=== PATIENT | male | born 1955 | race Caucasian/White ===

== ENCOUNTER 2016-09-30 19:05 | Emergency (ER) | payer MEDICARE, BC, MEDICAID ==
[2016-09-30 20:36] LABS: CHLORIDE,CL 101 mmol/L (98-107); SODIUM,NA 140 mmol/L (136-145)
[2016-09-30 21:17] VITALS: BP 123/73
--- NOTE | 2016-09-30 21:49 | EDM.PDOC ---
ED HPI GENERAL MEDICAL PROBLEM - General Chief Complaint: General Stated Complaint: abdominal/rib pain Time Seen by Provider: 09/30/16 19:30 Source of Information: Reports: Patient History Limitations: Reports: No Limitations - History of Present Illness Onset: Today Duration: Hour(s):, Getting Worse Location: Reports: Chest Quality: Reports: Sharp Severity: Moderate Improves with: Reports: None Worsens with: Reports: None Context: Reports: Activity, Lifting Associated Symptoms: Reports: No Other Symptoms Bilateral Thoracic Pain Score (Numeric/FACES): 10 - Related Data Allergies Allergy/AdvReac Type Severity Reaction Status Date / Time No Known Allergies Allergy Verified 09/30/16 19:36 Home Meds: Home Meds Amitriptyline [Elavil] 50 mg PO BEDTIME 01/07/15 [History] Divalproex Sodium 1,000 mg PO BEDTIME 01/07/15 [History] OLANZapine 20 mg PO BEDTIME 01/07/15 [History] Simvastatin 20 mg PO BEDTIME 01/07/15 [History] Past Medical History Cardiovascular History: Reports: High Cholesterol Respiratory History: Reports: None Gastrointestinal History: Reports: Chronic Constipation Genitourinary History: Reports: None, Renal Calculus Musculoskeletal History: Reports: Fracture Neurological History: Reports: None Psychiatric History: Reports: Anxiety, Depression Endocrine/Metabolic History: Reports: None Hematologic History: Reports: None Immunologic History: Reports: None Oncologic (Cancer) History: Reports: None Dermatologic History: Reports: None - Past Surgical History HEENT Surgical History: Reports: Tonsillectomy Respiratory Surgical History: Reports: None GI Surgical History: Reports: None Endocrine Surgical History: Reports: None Neurological Surgical History: Reports: None Musculoskeletal Surgical History: Reports: Other (See Below) Other Musculoskeletal Surgeries/Procedures:: surgical repair right ankle Dermatological Surgical History: Reports: None Social & Family History - Tobacco Use Smoking Status *Q: Current Every Day Smoker Years of Tobacco use: 40 Packs/Tins Daily: 0.5 Second Hand Smoke Exposure: No - Caffeine Use Caffeine Use: Reports: Soda - Alcohol Use Days Per Week of Alcohol Use: 0 (No previous DWIs, problems with alcohol abuse, etc.) - Recreational Drug Use Recreational Drug Use: No Drug Use in Last 12 Months: No - Living Situation & Occupation Living situation: Reports: Single, with Family Occupation: Disabled ED ROS GENERAL - Review of Systems Review Of Systems: See Below Constitutional: Reports: Fever HEENT: Reports: No Symptoms Respiratory: Reports: No Symptoms Cardiovascular: Reports: No Symptoms Endocrine: Reports: No Symptoms GI/Abdominal: Reports: No Symptoms : Reports: No Symptoms Musculoskeletal: Reports: No Symptoms Neurological: Reports: No Symptoms Psychiatric: Reports: Anxiety, Depression Hematologic/Lymphatic: Reports: No Symptoms Immunologic: Reports: No Symptoms ED EXAM, GENERAL - Physical Exam Exam: See Below Exam Limited By: No Limitations General Appearance: Alert, WD/WN, No Apparent Distress Ears: Normal External Exam, Normal Canal, Hearing Grossly Normal, Normal TMs Nose: Normal Inspection, Normal Mucosa, No Blood Throat/Mouth: Normal Inspection, Normal Lips, Normal Teeth, Normal Gums, Normal Oropharynx, Normal Voice, No Airway Compromise Head: Atraumatic, Normocephalic Neck: Normal Inspection, Supple, Non-Tender, Full Range of Motion Respiratory/Chest: No Respiratory Distress, Lungs Clear, Normal Breath Sounds, No Accessory Muscle Use, Chest Non-Tender, Other (Pain to palpation right and left lower chest anterior) Cardiovascular: Normal Peripheral Pulses, Regular Rate, Rhythm, No Edema, No Gallop, No JVD, No Murmur, No Rub GI/Abdominal: Normal Bowel Sounds, Soft, Non-Tender, No Organomegaly, No Distention, No Abnormal Bruit, No Mass (Male) Exam: Deferred Rectal (Males) Exam: Deferred Back Exam: Normal Inspection Extremities: Normal Inspection, Normal Range of Motion, Non-Tender, Normal Capillary Refill, No Pedal Edema Neurological: Alert, Oriented, CN II-XII Intact, Normal Cognition, Normal Gait, Normal Reflexes, No Motor/Sensory Deficits Course - Vital Signs Last Recorded V/S: Last Vital Signs Temp 100.3 F 09/30/16 21:04 Pulse 89 09/30/16 21:04 Resp 20 09/30/16 21:04 BP 123/73 09/30/16 21:04 Pulse Ox 95 09/30/16 21:04 - Orders/Labs/Meds Orders: Active Orders 24 hr Category Date Time Status CXR [Chest 2V] [CR] Stat Exams 09/30/16 20:00 Taken Labs: Laboratory Tests 09/30/16 09/30/16 Range/Units 20:20 20:20 WBC 10.5 H (4.0-10.2) K/uL RBC 4.92 (4.33-5.41) M/uL Hgb 16.0 D (13.1-16.8) g/dL Hct 46.8 (39.0-49.0) % MCV 95.1 (84.0-98.0) fL MCH 32.5 (28.2-33.3) pg MCHC 34.2 (31.7-36.0) g/dL RDW 12.0 (11.2-14.1) % Plt Count 166 (150-350) K/uL Neut % (Auto) 56.8 (45.0-80.0) % Lymph % (Auto) 27.7 (10.0-50.0) % Mcmullen % (Auto) 13.9 (2.0-14.0) % Eos % (Auto) 1.3 (0.0-5.0) % Baso % (Auto) 0.3 (0.0-2.0) % Neut # (Auto) 5.94 (1.40-7.00) K/uL Lymph # (Auto) 2.89 (0.50-3.50) K/uL Mcmullen # (Auto) 1.45 H (0.00-1.00) K/uL Eos # (Auto) 0.14 (0.00-0.50) K/uL Baso # (Auto) 0.03 (0.00-0.20) K/uL Sodium 140 (136-145) mmol/L Potassium 4.5 (3.5-5.1) mmol/L Chloride 101 (98-107) mmol/L Carbon Dioxide 30.3 (21.0-32.0) mmol/L BUN 9 (7-18) mg/dL Creatinine 0.85 (0.51-1.17) mg/dL Est Cr Clr Drug Dosing TNP Estimated GFR (MDRD) > 60 mL/min Glucose 103 (74-106) mg/dL Calcium 8.9 (8.5-10.1) mg/dL Departure - Departure Time of Disposition: 21:49 Disposition: Refer to Observation Clinical Impression: Costochondritis - Discharge Information Forms: ED Department Discharge Care Plan Goals: Patient to take Tylenol 2 tablets every 6 hours for pain also he is to do deep breathing and coughing exercises 10 times per hour while awake - My Orders Last 24 Hours: My Active Orders 09/30/16 20:00 CXR [Chest 2V] [CR] Stat - Assessment/Plan Last 24 Hours: My Active Orders 09/30/16 20:00 CXR [Chest 2V] [CR] Stat
== END 2016-09-30 22:15 | disposition home or self-care (01) ==
LOC: LL.ED 19:05
DX: M94.0 Chondrocostal junction syndrome [Tietze] (principal); E78.00 Pure hypercholesterolemia, unspecified; F17.210 Nicotine dependence, cigarettes, uncomplicated; F32.9 Major depressive disorder, single episode, unspecified
CPT/HCPCS: 36415; 71020; 80048; 85025; 99282; 99284

== ENCOUNTER 2017-03-26 17:48 | Emergency (ER) | payer MEDICARE, BC, MEDICAID ==
[2017-03-26 18:36] VITALS: BP 132/68
[2017-03-26 18:52] LABS: CHLORIDE,CL 105 mmol/L (98-107); SODIUM,NA 140 mmol/L (136-145)
--- NOTE | 2017-03-26 20:11 | EDM.PDOC ---
ED HPI GENERAL MEDICAL PROBLEM - General Chief Complaint: Gastrointestinal Problem Stated Complaint: Diarrhea Time Seen by Provider: 03/26/17 18:10 Source of Information: Reports: Patient History Limitations: Reports: Altered Mental Status - History of Present Illness INITIAL COMMENTS - FREE TEXT/NARRATIVE: Patient seen with 5 days history of diarrhea states that 3 days ago he took 5 heaping tablespoons of milk of magnesia and now can control himself he's been stooling his underwear continuous he's taken Imodium with no help patient states that he took the milk of magnesia to clean himself out Onset: Gradual Duration: Day(s):, Getting Worse Location: Reports: Abdomen Quality: Reports: Ache Severity: Moderate Improves with: Reports: None Worsens with: Reports: Medication (Milk of magnesia) Context: Reports: Activity Associated Symptoms: Reports: Weakness Treatments HAND MOLD MAKER: Reports: Other (see below) Other Treatments HAND MOLD MAKER: immodium - Related Data Allergies Allergy/AdvReac Type Severity Reaction Status Date / Time No Known Allergies Allergy Verified 09/30/16 19:36 Home Meds: Home Meds Amitriptyline [Elavil] 50 mg PO BEDTIME 01/07/15 [History] Divalproex Sodium 1,000 mg PO BEDTIME 01/07/15 [History] OLANZapine 20 mg PO BEDTIME 01/07/15 [History] Simvastatin 20 mg PO BEDTIME 01/07/15 [History] Past Medical History Cardiovascular History: Reports: High Cholesterol Respiratory History: Reports: None Gastrointestinal History: Reports: Chronic Constipation Genitourinary History: Reports: None, Renal Calculus Musculoskeletal History: Reports: Fracture Neurological History: Reports: None Psychiatric History: Reports: Anxiety, Depression Endocrine/Metabolic History: Reports: None Hematologic History: Reports: None Immunologic History: Reports: None Oncologic (Cancer) History: Reports: None Dermatologic History: Reports: None - Past Surgical History HEENT Surgical History: Reports: Tonsillectomy Respiratory Surgical History: Reports: None GI Surgical History: Reports: None Endocrine Surgical History: Reports: None Neurological Surgical History: Reports: None Musculoskeletal Surgical History: Reports: Other (See Below) Other Musculoskeletal Surgeries/Procedures:: surgical repair right ankle Dermatological Surgical History: Reports: None Social & Family History - Tobacco Use Smoking Status *Q: Current Every Day Smoker Years of Tobacco use: 40 Packs/Tins Daily: 0.5 Second Hand Smoke Exposure: No - Caffeine Use Caffeine Use: Reports: Soda - Alcohol Use Days Per Week of Alcohol Use: 0 - Recreational Drug Use Recreational Drug Use: No Drug Use in Last 12 Months: No - Living Situation & Occupation Living situation: Reports: Single, with Family Occupation: Disabled ED ROS GENERAL - Review of Systems Review Of Systems: See Below Constitutional: Reports: Weakness, Fatigue HEENT: Reports: No Symptoms Respiratory: Reports: No Symptoms Cardiovascular: Reports: No Symptoms Endocrine: Reports: No Symptoms GI/Abdominal: Reports: Diarrhea, Stool Incontinence : Reports: No Symptoms Musculoskeletal: Reports: No Symptoms Skin: Reports: No Symptoms ED EXAM, GI/ABD - Physical Exam Exam: See Below Exam Limited By: Altered Mental Status General Appearance: Alert, WD/WN, Anxious, Moderate Distress Eyes: Bilateral: Normal Appearance, EOMI Ears: Normal External Exam, Normal Canal, Hearing Grossly Normal, Normal TMs Nose: Normal Inspection, Normal Mucosa, No Blood Throat/Mouth: Normal Inspection, Normal Lips, Normal Teeth, Normal Gums, Normal Oropharynx, Normal Voice, No Airway Compromise Head: Atraumatic, Normocephalic Neck: Normal Inspection, Supple, Non-Tender, Full Range of Motion Respiratory/Chest: Decreased Breath Sounds Cardiovascular: Normal Peripheral Pulses, Regular Rate, Rhythm, No Edema, No Gallop, No JVD, No Murmur, No Rub GI/Abdominal Exam: Non-Tender, No Distention, Abnormal Bowel Sounds (Male) Exam: No Hernia, Normal Inspection, Normal Prostate, Circumcised Rectal (Males) Exam: Normal Exam, Normal Rectal Tone Back Exam: Normal Inspection, Full Range of Motion, NT Extremities: Normal Inspection, Normal Range of Motion, Non-Tender, Normal Capillary Refill, No Pedal Edema Neurological: Alert, Oriented, CN II-XII Intact, Normal Cognition, Normal Gait, Normal Reflexes, No Motor/Sensory Deficits Psychiatric: Anxious, Depressed Mood, Flat Affect Skin Exam: Warm, Dry, Intact, Normal Color, No Rash Course - Vital Signs Last Recorded V/S: Last Vital Signs Temp 99 F 03/26/17 17:50 Pulse 98 03/26/17 17:50 Resp 18 03/26/17 17:50 BP 132/68 03/26/17 17:50 Pulse Ox 98 03/26/17 17:50 - Orders/Labs/Meds Orders: Active Orders 24 hr Category Date Time Status C DIFFICILE TOXIN BY PCR [MREF] Stat Lab 03/26/17 18:08 Uncollected FECAL LACTOFERRIN [MREF] Stat Lab 03/26/17 18:09 Uncollected STOOL CULTURE [MREF] Stat Lab 03/26/17 18:08 Uncollected STOOL CULTURE/SHIGA TOXIN [MREF] Stat Lab 03/26/17 18:08 Uncollected Labs: Laboratory Tests 03/26/17 03/26/17 Range/Units 18:30 18:30 WBC 8.8 (4.0-10.2) K/uL RBC 4.13 L (4.33-5.41) M/uL Hgb 13.4 D (13.1-16.8) g/dL Hct 39.4 (39.0-49.0) % MCV 95.4 (84.0-98.0) fL MCH 32.4 (28.2-33.3) pg MCHC 34.0 (31.7-36.0) g/dL RDW 12.1 (11.2-14.1) % Plt Count 228 D (150-350) K/uL Neut % (Auto) 61.5 (45.0-80.0) % Lymph % (Auto) 24.2 (10.0-50.0) % [place]kin % (Auto) 13.4 (2.0-14.0) % Eos % (Auto) 0.7 (0.0-5.0) % Baso % (Auto) 0.2 (0.0-2.0) % Neut # (Auto) 5.43 (1.40-7.00) K/uL Lymph # (Auto) 2.14 (0.50-3.50) K/uL [place]kin # (Auto) 1.18 H (0.00-1.00) K/uL Eos # (Auto) 0.06 (0.00-0.50) K/uL Baso # (Auto) 0.02 (0.00-0.20) K/uL Sodium 140 (136-145) mmol/L Potassium 3.7 (3.5-5.1) mmol/L Chloride 105 (98-107) mmol/L Carbon Dioxide 28.5 (21.0-32.0) mmol/L BUN 9 (7-18) mg/dL Creatinine 0.72 (0.51-1.17) mg/dL Est Cr Clr Drug Dosing TNP Estimated GFR (MDRD) > 60 mL/min Glucose 152 H (74-106) mg/dL Calcium 8.9 (8.5-10.1) mg/dL Departure - Departure Time of Disposition: 20:13 Disposition: Home, Self-Care 01 Condition: Fair Clinical Impression: Gastroenteritis, Mixed anxiety depressive disorder, Tobacco abuse counseling, Weakness, Mental disability without special needs - Discharge Information Referrals: Jorje Bassett BIOCHEMICAL DEVELOPMENT ENGINEER [Primary Care Provider] - Care Plan Goals: Patient will be sent home he will obtain stool for cultures C difficile and WBCs we will see him in clinic in 3 days - My Orders Last 24 Hours: My Active Orders 03/26/17 18:08 C DIFFICILE TOXIN BY PCR [MREF] Stat STOOL CULTURE [MREF] Stat STOOL CULTURE/SHIGA TOXIN [MREF] Stat 03/26/17 18:09 FECAL LACTOFERRIN [MREF] Stat - Assessment/Plan Last 24 Hours: My Active Orders 03/26/17 18:08 C DIFFICILE TOXIN BY PCR [MREF] Stat STOOL CULTURE [MREF] Stat STOOL CULTURE/SHIGA TOXIN [MREF] Stat 03/26/17 18:09 FECAL LACTOFERRIN [MREF] Stat
== END 2017-03-26 20:40 | disposition home or self-care (01) ==
LOC: LL.ED 17:48
DX: K52.9 Noninfective gastroenteritis and colitis, unspecified (principal); F41.8 Other specified anxiety disorders; Z71.6 Tobacco abuse counseling; F99 Mental disorder, not otherwise specified; E78.00 Pure hypercholesterolemia, unspecified; F32.9 Major depressive disorder, single episode, unspecified; F17.210 Nicotine dependence, cigarettes, uncomplicated
CPT/HCPCS: 36415; 80048; 83630; 85025; 87045; 87046; 87493; 87899; 99283; 99284

== ENCOUNTER 2019-10-25 15:46 | Emergency (ER) | payer MEDICARE, BC, MEDICAID ==
[2019-10-25 15:50] VITALS: BP 135/73; PULSE 81
--- NOTE | 2019-10-25 15:59 | EDM.PDOC ---
ED HPI GENERAL MEDICAL PROBLEM - General Chief Complaint: General Stated Complaint: "itching all over" Time Seen by Provider: 10/25/19 15:55 Source of Information: Reports: Patient, Old Records ([facility] chart/EMR) History Limitations: Reports: Altered Mental Status (Chronic mental deficits) - History of Present Illness INITIAL COMMENTS - FREE TEXT/NARRATIVE: The patient drove himself to the emergency room via private automobile for evaluation of nonspecific generalized pruritus without history of rash, change in allergen exposure, new recent medications, etc.. He denies any dysphasia, facial swelling, etc. Patient is a somewhat poor historian secondary to his baseline mental deficits. The patient also denies any recent fever, cough, wheezing, dyspnea, etc.. No recent history of abdominal pain, heartburn, nausea, diarrhea, melena, gross hematochezia, or any food intolerance, including fatty foods, etc.. The patient denies any chest pain/pressure, heart flutter, dizziness, orthostasis, orthopnea, diaphoresis, paresthesias, recent decreased exercise tolerance, or any other anginal-type symptoms. He has not taken any medications for his symptoms to this point. The patient denies any pain or discomfort with symptoms starting sometime yesterday evening. Onset: Gradual, Unknown/Unsure Onset Date: 10/24/19 Duration: Constant Location: Reports: Generalized Quality: Reports: Same as Previous Episode Severity: Mild Improves with: Reports: None Worsens with: Reports: None Context: Reports: Other (As above). Denies: Sick Contact Associated Symptoms: Reports: No Other Symptoms. 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 Denies: Allergic Rhinitis, Hard of Hearing Other HEENT History: Patient wears glasses. Cardiovascular History: Reports: Cardiomyopathy, High Cholesterol, Other (See Below). Denies: CAD, Heart Failure, Heart Murmur, Hypertension, [place] Other Cardiovascular History: Diastolic dysfunction by echocardiogram. Evidence of coronary artery calcifications by CT scan with no previous known coronary artery disease or MN. Respiratory History: Reports: Bronchitis, Recurrent, COPD. Denies: PE, Pneumonia, Recurrent, Sleep Apnea Gastrointestinal History: Reports: Chronic Constipation, Fatty Liver, Other (See Below) Other Gastrointestinal History: Fatty liver and splenomegaly secondary to hyperlipidemia. Genitourinary History: Reports: BPH, Renal Calculus. Denies: Retention, Urinary Musculoskeletal History: Reports: Arthritis, Back Pain, Chronic, Fracture, Neck Pain, Chronic, Osteoarthritis, Other (See Below). Denies: Gout Other Musculoskeletal History: Trimalleolar right ankle fracture on 12/04/2014 requiring surgery as below. Neurological History: Reports: Other (See Below). Denies: Concussion, CVA, Headaches, Chronic, Head Trauma, Migraines, Neuropathy, Peripheral, Seizure, TIA Other Neuro History: Chronic mental deficit as below. Psychiatric History: Reports: Anxiety, Depression, Developmental Delay, Schizophrenia, Suicidal Ideation, Other (See Below). Denies: Addiction, Psych Hospitalization(s), Suicide Attempt Other Psychiatric History: Developmental delay/learning disability as above. Chronic insomnia. Previous history of suicidal ideation with no attempts. Endocrine/Metabolic History: Reports: None. Denies: Diabetes, Type I, Diabetes, Type II, Diabetes Mellitus, Type 3c, Hypothyroidism, IDDM Hematologic History: Reports: None Immunologic History: Reports: None Oncologic (Cancer) History: Reports: None Dermatologic History: Reports: None - Infectious Disease History Infectious Disease History: Reports: Chicken Pox, Measles, Mumps, Shingles (Facial herpes zoster.) - Past Surgical History HEENT Surgical History: Reports: Adenoidectomy, Oral Surgery, Tonsillectomy, Other (See Below) Other HEENT Surgeries/Procedures: Tonsillectomy and adenoidectomy at age 8. [place] teeth extraction with additional multiple teeth extractions. Respiratory Surgical History: Reports: None GI Surgical History: Reports: Colonoscopy, Other (See Below). Denies: Appendectomy, Cholecystectomy, EGD, Hernia, Abdominal, Hernia, Inguinal, Hernia Repair/Other, Polypectomy Other GI Surgeries/Procedures: Last colonoscopy on 11/17/2010 with previous evaluation on 06/30/2009. Endocrine Surgical History: Reports: None Neurological Surgical History: Reports: None Musculoskeletal Surgical History: Reports: Arthroscopic Knee, Arthroscopic Procedure, ORIF, Other (See Below) Other Musculoskeletal Surgeries/Procedures:: ORIF of right ankle fracture on 12/06/2004 with subsequent hardware removal on 03/17/2005. Left knee arthroscopic evaluation on 10/19/2008. Dermatological Surgical History: Reports: None - Past Imaging History Past Imaging History: Reports: Barium Enema (07/08/2009), Cardiac Echo (08/18/2014 with ejection fraction of 60-65%.), CAT Scan (CT of the abdomen and pelvis on 11/05/2013. CT of the chest on 12/18/2003.), EEG (09/09/2013.), MRA (MRA of the brain and cervical region on 09/09/2013.), Ultrasound (Abdominal ultrasound on 02/17/2003.), Venous Doppler (Right leg on 03/10/2005 and the left leg on 10/30/2008.) Social & Family History - Tobacco Use Smoking Status *Q: Current Every Day Smoker Tobacco Use Within Last Twelve Months: Pipe Years of Tobacco use: 45 Packs/Tins Daily: 15 Packs/Tins Daily Comment: 15 pipes per day currently with previous cigarette use of 1-1.5 packs/day for about 20 years. Maximum pipe use of 20-30/day. Used Tobacco, but Quit: No Smoking Cessation Information Provided To Patient: Yes Second Hand Smoke Exposure: No Second Hand Smoke Education Provided: No - Caffeine Use Caffeine Use: Reports: Soda - Alcohol Use Alcohol Use History: No Days Per Week of Alcohol Use: 0 Number of Drinks Per Day: 0 Number of Drinks Per Day Comment: No previous DWIs, problems with alcohol abuse, etc. Total Drinks Per Week: 0 Alcohol Use in Last Twelve Months: No - Recreational Drug Use Recreational Drug Use: No - Living Situation & Occupation Living situation: Reports: Single (No children), with Family (Mother) Occupation: Disabled (Secondary to learning disability) ED ROS GENERAL - Review of Systems Review Of Systems: Comprehensive ROS is negative, except as noted in HPI. ED EXAM, GENERAL - Physical Exam Exam: See Below Exam Limited By: No Limitations General Appearance: Alert, WD/WN, No Apparent Distress, Anxious (Mild) Eye Exam: Bilateral Eye: EOMI, Normal Inspection (Patient is wearing glasses. No nystagmus), PERRL Ears: Normal External Exam, Normal Canal, Hearing Grossly Normal, Normal TMs Nose: Normal Inspection, Normal Mucosa, No Blood Throat/Mouth: Normal Lips, Normal Gums, Normal Oropharynx, Normal Voice, No Airway Compromise. No: Normal Teeth (Multiple missing teeth with moderate caries without abscess in the last remaining left upper premolar), Dysphagia, Perioral Cyanosis Head: Atraumatic, Normocephalic, Other (Mild dry skin on the forehead without significant rash). No: Facial Swelling, Facial Tenderness, Sinus Tenderness Neck: Normal Inspection, Supple, Non-Tender, Full Range of Motion. No: Lymphadenopathy (L), Lymphadenopathy (R), Thyromegaly Respiratory/Chest: No Respiratory Distress, Lungs Clear, Normal Breath Sounds, No Accessory Muscle Use, Chest Non-Tender. No: Pleural Rub, Retractions Cardiovascular: Normal Peripheral Pulses, Regular Rate, Rhythm, No Edema, No Gallop, No JVD, No Murmur, No Rub. No: Gallop/S3, Gallop/S4, Friction Rub Peripheral Pulses: 2+: Radial (L), Radial (R) GI/Abdominal: Normal Bowel Sounds, Soft, Non-Tender, No Organomegaly, No Distention, No Abnormal Bruit, No Mass. No: Guarding (Male) Exam: Deferred Rectal (Males) Exam: Deferred Back Exam: Normal Inspection, Full Range of Motion. No: CVA Tenderness (L), CVA Tenderness (R), Muscle Spasm Extremities: Normal Inspection, Normal Range of Motion, Non-Tender, No Pedal Edema, Normal Capillary Refill. No: Joselyn's Sign Neurological: Alert, CN II-XII Intact, Normal Gait, No Motor/Sensory Deficits. No: Normal Cognition (Stable baseline mental deficit from previous evaluations) Psychiatric: Anxious (Mild). No: Depressed Mood Skin Exam: Warm, Dry (Especially in the forehead as above), Intact, Normal Color, No Rash. No: Diaphoretic, Jaundice, Wound/Incision Lymphatic: No Adenopathy Course - Vital Signs Last Recorded V/S: Last Vital Signs Temp 36.9 C 10/25/19 15:48 Pulse 81 10/25/19 15:48 Resp 18 10/25/19 15:48 BP 135/73 10/25/19 15:48 Pulse Ox 96 10/25/19 15:48 Vital Signs - 24 hr 10/25/19 15:48 Temperature [ 36.9 C Temporal] Pulse, 81 Peripheral [ Pulse Oximetry] Respiratory 18 Rate Blood Pressure 135/73 [Left Upper Arm ] O2 Sat by Pulse 96 Oximetry - Orders/Labs/Meds Labs: None Meds: Medications Discontinued Medications Generic Name Dose Route Start Last Admin Trade Name Freq PRN Reason Stop Dose Admin Cetirizine HCl 10 mg 10/25/19 16:06 10/25/19 16:16 Zyrtec PO 10/25/19 16:07 10 mg ONETIME ONE Administration - Radiology Interpretation Free Text/Narrative:: None Departure - Departure Time of Disposition: 16:35 Disposition: Home, Self-Care 01 Condition: Good Clinical Impression: Pruritus, Mental disability without special needs, Mixed anxiety depressive disorder, Tobacco abuse counseling, Caries, Osteoarthritis, COPD (chronic obstructive pulmonary disease) - Discharge Information *PRESCRIPTION DRUG MONITORING PROGRAM REVIEWED*: Not Applicable *COPY OF PRESCRIPTION DRUG MONITORING REPORT IN PATIENT CHARLIE: Not Applicable Prescriptions: diphenhydrAMINE [Benadryl] 50 mg PO Q4H PRN #60 cap PRN Reason: Itching Instructions: Steps to Quit Smoking, [id number], Pruritus, Health Risks of Smoking Referrals: Adrianne Osorio NP [Primary Care Provider] - Forms: ED Department Discharge Additional Instructions: 1. Follow up with your regular provider in 10-14 days as needed, if symptoms persist. Bring these discharge instructions with you to that visit.. 2. Start Benadryl as needed tomorrow with sedation precautions with this medication as discussed. 3. Stop all tobacco use DONNA as directed/per provided information and consider contacting Quit LIne, etc.. 4. Otherwise follow-up with your dentist DONNA as discussed 5. Immediately after this visit verify that your cellular telephone's voicemail has been activated and is empty. Also verify that your home telephone's answering machine is operating properly and has space to receive messages. Note that it is sometimes necessary for us to be able to contact you at a later date to discuss your medical care. 6. Please remember that we are ALWAYS here for you and want to answer any questions you may have. Feel free to call the hospital any time and we call you back DONNA. Sepsis Event Note (ED) - Evaluation Sepsis Screening Result: No Definite Risk - Focused Exam Vital Signs: Vital Signs Temp Pulse Resp BP Pulse Ox 10/25/19 15:48 36.9 C 81 18 135/73 96 - Problem List & Annotations (1) Pruritus SNOMED Code(s): 391483818 Code(s): L29.9 - PRURITUS, UNSPECIFIED Status: Acute Priority: High Onset Date: 10/25/19 Annotation/Comment:: No current rash. Zyrtec given. As needed OTC Benadryl use as per discharge instructions. Patient was also counseled on the use of Aveeno lotion and/or soap. (2) Caries SNOMED Code(s): 70457943 Code(s): K02.9 - DENTAL CARIES, UNSPECIFIED Status: Acute Priority: High Annotation/Comment:: Follow-up with dentist [facility] as discussed. (3) Mental disability without special needs SNOMED Code(s): 98495197 Code(s): F79 - UNSPECIFIED INTELLECTUAL DISABILITIES Status: Chronic Priority: Medium Annotation/Comment:: Patient essentially takes care of his mother. Continue to observe closely by his regular provider. Stable by today's exam and history. (4) Mixed anxiety depressive disorder SNOMED Code(s): 635861710 Code(s): F41.8 - OTHER SPECIFIED ANXIETY DISORDERS Status: Chronic P riority: High Annotation/Comment:: Stable by history (5) Tobacco abuse counseling SNOMED Code(s): 142106404, 577207520, 812665482 Code(s): Z71.6 - TOBACCO ABUSE COUNSELING Status: Chronic Priority: Medium Annotation/Comment:: Tobacco cessation once again strongly encouraged with information provided (6) COPD (chronic obstructive pulmonary disease) SNOMED Code(s): 53109549 Code(s): J44.9 - CHRONIC OBSTRUCTIVE PULMONARY DISEASE, UNSPECIFIED Status: Chronic Priority: Medium Annotation/Comment:: Stable by history. No current medical therapy. No recent fever or bronchitic type symptoms. Qualifiers: COPD type: emphysema Emphysema type: panlobular Qualified Code(s): J43.1 - Panlobular emphysema (7) Osteoarthritis SNOMED Code(s): 969548396 Code(s): M19.90 - UNSPECIFIED OSTEOARTHRITIS, UNSPECIFIED SITE Status: Chronic Priority: Medium Annotation/Comment:: Stable by history Qualifiers: Osteoarthritis location: multiple joints - Problem List Review Problem List Initiated/Reviewed/Updated: Yes - Assessment/Plan Assessment:: As above Plan: As above. Extensive precautions were given to the patient, who is in agreement with the treatment plan. See Patient Instructions for further treatment and plan.
[2019-10-25] MEDS ORDERED: Cetirizine 10 MG Tab PO ONE (16:06)
== END 2019-10-25 16:30 | disposition home or self-care (01) ==
LOC: LL.ED 15:46
DX: F41.8 Other specified anxiety disorders (principal); J44.9 Chronic obstructive pulmonary disease, unspecified; Z71.0 Person encountering health services to consult on behalf of another person; K02.9 Dental caries, unspecified; L29.9 Pruritus, unspecified; M19.90 Unspecified osteoarthritis, unspecified site; E78.00 Pure hypercholesterolemia, unspecified; F17.290 Nicotine dependence, other tobacco product, uncomplicated
CPT/HCPCS: 99282; A9270-GY

== ENCOUNTER 2021-11-01 13:06 | Observation (INO) | payer MEDICARE, BC ==
[2021-11-01] MEDS ORDERED: Sodium Chloride 0.9% 10 ML Syringe FLUSH PRN (13:17)
[2021-11-01] MEDS ORDERED: GI Cocktail Oral Solution 30 ML PO ONE (13:26)
[2021-11-01] MEDS ORDERED: GI Cocktail Oral Solution 30 ML ONE (13:43)
[2021-11-01 13:56] LABS: PTT,PARTIAL THROMBOPLSTIN TIME 25.8 SEC (23.6-29.8)
[2021-11-01 14:10] LABS: ANION GAP 7.7 meq/L (7-15); CHLORIDE,CL 100 mmol/L (98-107); SODIUM,NA 137 mmol/L (136-145)
[2021-11-01 14:12] LABS: ESTIMATED GFR 64 mL/min (>=60)
[2021-11-01] MEDS ORDERED: Sodium Chloride 0.9% 1,000 ML IV ONE ×2 (14:48→18:07)
[2021-11-01] MEDS ORDERED: Lactulose Soln 10 GM/15 ML 30 ML UD Cup PO ONE (18:01)
[2021-11-01] MEDS ORDERED: Magnesium Citrate Solution 296 ML Bottle PO ONE (18:02)
[2021-11-01] MEDS ORDERED: Acetaminophen/Codeine 300-30 MG Tab PO PRN (18:02)
[2021-11-01] MEDS: Nicotine 21 MG/24 Hr Patch TRDERM SCH (18:27)
[2021-11-01] MEDS ORDERED: Non-Formulary Medication 1 Each (Melatonin [Melatonin] 10 MG Tablet) PO SCH (20:00)
[2021-11-01] MEDS ORDERED: OLANZapine 10 MG Tab PO SCH (20:00)
[2021-11-01] MEDS ORDERED: Amitriptyline 25 MG Tab PO SCH (20:00)
[2021-11-01] MEDS ORDERED: Melatonin 3 MG Tab PO SCH (21:00)
[2021-11-02] MEDS ORDERED: Lactulose Soln 10 GM/15 ML 30 ML UD Cup PO ONE (06:00)
[2021-11-02] MEDS ORDERED: Levothyroxine 112 MCG Tab PO SCH (07:30)
[2021-11-02] MEDS: Nicotine 21 MG/24 Hr Patch TRDERM SCH (07:55)
[2021-11-02] MEDS ORDERED: Diclofenac Sodium 1% Gel 100 GM Tube TOP SCH (08:00)
[2021-11-02 09:16] LABS: HEMOGLOBIN A1C 8.4 % (4.3-5.7)
[2021-11-02 09:18] LABS: ANION GAP 7.6 meq/L (7-15)
[2021-11-02 13:08] VITALS: BP 135/76; PULSE 76
[2021-11-02] MEDS ORDERED: Divalproex Sodium Delayed-Release 250 MG Tab.CR PO SCH (20:00)
== END 2021-11-02 13:15 | disposition home or self-care (01) ==
LOC: LL.ED 13:06 → LL.MS 16:49
PROVIDERS: ADMIT Emergency Medicine; ATTEND Emergency Medicine
DX: U07.1 COVID-19 (principal); R10.11 Right upper quadrant pain; R79.89 Other specified abnormal findings of blood chemistry; J43.1 Panlobular emphysema; E11.9 Type 2 diabetes mellitus without complications; F41.8 Other specified anxiety disorders; F32.A Depression, unspecified; I45.10 Unspecified right bundle-branch block; M15.9 Polyosteoarthritis, unspecified; F79 Unspecified intellectual disabilities; R45.851 Suicidal ideations; N40.0 Benign prostatic hyperplasia without lower urinary tract symptoms; Z79.899 Other long term (current) drug therapy; Z79.1 Long term (current) use of non-steroidal anti-inflammatories (NSAID); Z79.811 Long term (current) use of aromatase inhibitors; Z79.890 Hormone replacement therapy; Z98.890 Other specified postprocedural states; Z20.822 Contact with and (suspected) exposure to COVID-19
CPT/HCPCS: 36415; 71046; 74176; 80053; 81001; 82550; 83036; 83605; 83735; 83880; 84443; 84484; 85025; 85379; 85610; 85730; 93005; 93010; 96360; 96361; 99217; 99220; 99285; A9270-GY; G0378; J7030; U0002

== ENCOUNTER 2023-09-17 21:09 | Emergency (ER) | payer MEDICARE, OTHER ==
[2023-09-17] MEDS ORDERED: Sodium Chloride 0.9% 10 ML Syringe FLUSH PRN (21:10)
[2023-09-17 21:38] LABS: APPEARANCE,URINE SLIGHTLY CLOUDY; BILIRUBIN,URINE NEGATIVE (NEGATIVE); COLOR,URINE YELLOW; GLUCOSE,URINE >=1000 mg/dL (NEGATIVE); KETONES,URINE TRACE mg/dL (NEGATIVE); LEUKOCYTE ESTERASE,URINE NEGATIVE (NEGATIVE); NITRITE,URINE NEGATIVE (NEGATIVE); OCCULT BLOOD,URINE SMALL (NEGATIVE); PROTEIN,URINE NEGATIVE (NEGATIVE)
[2023-09-17 21:47] LABS: BASOPHILS ABSOLUTE AUTO 0.02 K/uL (0.00-0.20); BASOPHILS PERCENT AUTO 0.3 % (0.0-2.0); EOSINOPHILS ABSOLUTE AUTO 0.15 K/uL (0.00-0.50); EOSINOPHILS PERCENT AUTO 2.1 % (0.0-5.0); HEMATOCRIT 40.6 % (39.0-49.0); HEMOGLOBIN 13.8 g/dL (13.1-16.8); LYMPHOCYTES ABSOLUTE AUTO 2.61 K/uL (0.50-3.50); MEAN CORPUSCULAR HEMOGLOBIN 32.1 pg (28.2-33.3); MEAN CORPUSCULAR VOLUME 94.4 fL (84.0-98.0); MONOCYTES ABSOLUTE AUTO 0.68 K/uL (0.00-1.00); MONOCYTES PERCENT AUTO 9.6 % (2.0-14.0); NEUTROPHILS ABSOLUTE AUTO 3.59 K/uL (1.40-7.00); PLATELET COUNT,PLT 153 K/uL (150-350); RED CELL DISTRIBUTION WIDTH 12.5 % (11.2-14.1); WHITE BLOOD CELL COUNT,WBC 7.1 K/uL (4.0-10.2)
[2023-09-17 21:49] LABS: BACTERIA,URINE RARE /HPF (NONE TO FEW); EPITHELIAL CELLS,URINE RARE /LPF; MUCUS,URINE FEW /LPF (NEGATIVE); RBC,URINE 0-5 /HPF; WBC,URINE 0-5 /HPF
[2023-09-17 22:07] LABS: ALANINE AMINOTRANSFERASE,ALT 23 U/L (12-78); ALBUMIN 3.4 g/dL (3.4-5.0); ALKALINE PHOSPHATASE 68 IU/L (46-116); ANION GAP 8.4 meq/L (7-15); ASPARTATE AMNIOTRANSFERASE,AST 12 U/L (15-37); BILIRUBIN TOTAL 0.4 mg/dL (0.2-1.0); BLOOD UREA NITROGEN,BUN 12 mg/dL (7-18); CALCIUM 8.6 mg/dL (8.5-10.1); CARBON DIOXIDE,CO2 28.6 mmol/L (21.0-32.0); CHLORIDE,CL 102 mmol/L (98-107); CREATININE 0.95 mg/dL (0.51-1.17); ESTIMATED GFR 88 mL/min (>=60); GLUCOSE RANDOM 265 mg/dL (70-99); POTASSIUM,K 3.7 mmol/L (3.5-5.1); PROTEIN TOTAL,TP 7.3 g/dL (6.4-8.2); SODIUM,NA 139 mmol/L (136-145)
[2023-09-17 22:08] LABS: CORONAVIRUS COVID-19 NAA NEGATIVE (NEGATIVE); INFLUENZA A NAA NEGATIVE (NEGATIVE); INFLUENZA B NAA NEGATIVE (NEGATIVE); RESPIRATORY SYNCYTIAL VIR NAA NEGATIVE (NEGATIVE)
[2023-09-17 22:16] VITALS: BP 119/66; PULSE 78
== END 2023-09-17 22:29 | disposition home or self-care (01) ==
LOC: LL.ED 21:09
DX: R53.81 Other malaise (principal); J44.9 Chronic obstructive pulmonary disease, unspecified; E78.00 Pure hypercholesterolemia, unspecified; Z79.899 Other long term (current) drug therapy; Z88.1 Allergy status to other antibiotic agents; Z88.8 Allergy status to other drugs, medicaments and biological substances
CPT/HCPCS: 0241U; 36415; 80053; 81001; 84484; 85025; 93005; 99284; 93010

== ENCOUNTER 2025-02-03 08:48 | Emergency (ER) | payer MEDICARE, OTHER ==
[2025-02-03 09:01] VITALS: BP 116/62; PULSE 72
== END 2025-02-03 09:45 | disposition home or self-care (01) ==
LOC: LL.ED 08:48
DX: R31.9 Hematuria, unspecified (principal); Z88.8 Allergy status to other drugs, medicaments and biological substances; Z79.899 Other long term (current) drug therapy
CPT/HCPCS: 99283